=== PATIENT | female | born 2000 | race Caucasian/White ===

== ENCOUNTER 2018-02-15 21:12 | Emergency (ER) | payer OTHER ==
[~2018-02-15] VITALS: Ht 149.9 cm; Wt 62.6 kg
[2018-02-15 21:28] VITALS: BP 107/93
[2018-02-15] MEDS ORDERED: AUGMENTIN 875-1 EACH PO (21:46)
== END 2018-02-15 21:57 | disposition home or self-care (01) ==
LOC: M.ERS 21:12
DX: K04.7 Periapical abscess without sinus (principal); R59.1 Generalized enlarged lymph nodes